=== PATIENT | female | born 1965 | race Caucasian/White ===

== ENCOUNTER → 2021-03-28 10:14 | Outpatient (CLI) | payer OTHER, SELFPAY ==
[2021-03-28 11:50] LABS: COVID19 -Nasal RAPID Negative (Negative)
== END ==
PROVIDERS: PCP Physician Assistant; Visit Provider Physician Assistant
DX: Z20.822 Contact with and (suspected) exposure to COVID-19 (principal); R05.9 Cough, unspecified; R51.9 Headache, unspecified
CPT/HCPCS: 87635

== ENCOUNTER 2021-10-18 19:44 | Emergency (ER) | payer SELFPAY ==
[2021-10-18 19:51] VITALS: BP 134/73; PULSE 85; RESP 26; TEMP 37.6; O2SAT 98; BMI 29.5
--- NOTE | 2021-10-18 19:54 | DI.RAD.S_ITS ---
PROCEDURE: XR CHEST 2V INDICATIONS: shortness of breath TECHNIQUE: 2 views of the chest were acquired. COMPARISON: None. FINDINGS: Surgical changes and devices: None. Lungs and pleura: There is pulmonary edema. No focal consolidation. No pleural effusions or pneumothorax. Mediastinum: Mediastinal contours are normal. Heart size is normal. Bones and chest wall: No suspicious bony abnormalities. Soft tissues appear unremarkable. IMPRESSION: 1. Pulmonary edema which may be due to cardiogenic or noncardiogenic etiologies, such as atypical pneumonia. Dictated by: Lloyd Titus M.D. on 10/18/2021 at 21:04 Approved by: Lloyd Titus M.D. on 10/18/2021 at 21:05
[2021-10-18 20:22] LABS: COVID19 -Nasal RAPID POSITIVE (Negative)
[2021-10-18 20:32] LABS: Add Manual Diff / Slide Review NO; Basophils Absolute Auto 0 /uL (0-100); Basophils Percent Auto 0.7 % (0-2); Eosinophils Absolute Auto 0 /uL (0-450); Hematocrit 51.2 % (36-46); Hemoglobin 17.4 g/dL (12.0-16.0); Lymphocytes Absolute Auto 1100 /uL (1100-4500); Lymphocytes Percent Auto 25.4 % (25-40); Mean Corpuscular Hemoglobin 29.7 PG (26-34); Mean Corpuscular Volume 87.2 fL (80-100); Monocytes Absolute Auto 500 /uL (0-900); Monocytes Percent Auto 10.8 % (3-14); Neutrophils Absolute Auto 2800 /uL (1500-7000); Neutrophils Percent Auto 63.1 % (50-75); Platelet Count 152 X10^3/uL (150-400); Red Blood Cell Count 5.87 X10^6/uL (4.0-5.2); Red Cell Distribution Width 13.8 % (11.6-14.8); White Blood Cell Count 4.4 X10^3/uL (4.5-11.0)
[2021-10-18 20:40] LABS: Lactate (Lactic Acid) 1.8 mmol/L (0.7-2.1)
[2021-10-18 20:41] LABS: Alanine Aminotransferase 33 IU/L (<35); Albumin 4.4 g/dL (3.5-5.0); Albumin Globulin Ratio 1.4 (1.0-2.8); Alkaline Phosphatase 94 U/L (38-126); Aspartate Aminotransferase 46 IU/L (14-36); BUN Creatinine Ratio 15.5 (6-22); Bilirubin Total 0.6 mg/dL (0.2-1.3); Blood Urea Nitrogen 11 mg/dL (7-17); Calcium 8.4 mg/dL (8.4-10.2); Carbon Dioxide 29 mmol/L (22-32); Chloride 98 mmol/L (98-107); Estimated Glomerular Filt Rate > 60 mL/min (>60); Globulin 3.1 g/dL (1.7-4.1); Glucose 121 mg/dL (70-100); HEMOLYSIS < 15 (0-50); Potassium 3.4 mmol/L (3.4-5.1); Sodium 133 mmol/L (137-145); Total Protein 7.5 g/dL (6.3-8.2)
--- NOTE | 2021-10-18 20:47 | PC.NURSE ---
Pt states she was feeling faint. Sats checked and she is 96% on RA with a HR of 76. Pt brought to a couch in the waiting room where she can lay down since we have no open beds in the ER. Pt reminding to take slow deep breaths
--- NOTE | 2021-10-18 21:30 | PC.NURSE ---
pt sent from clinic no change in triage assessment pt aao x 3 resp even and unlabored, fariha
[2021-10-18 21:43] LABS: Creatine Kinase 91 U/L (30-135)
[2021-10-18 21:55] LABS: NT-proBNP (BNP-Adult 18+) 47 pg/mL (<125); Troponin I < 0.012 ng/mL (0.01-0.034)
--- NOTE | 2021-10-19 00:31 | ED.FEVER ---
HPI - Fever General Chief Complaint: Fever Stated Complaint: fever, not eating or drinking, sent by clinic Time Seen by Provider: 10/18/21 21:31 Source: patient Mode of arrival: Wheelchair Limitations: no limitations History of Present Illness HPI Narrative: This is a 56-year-old female who comes in with complaint of fevers for the past 7 days. Patient has had nausea with post-tussive emesis. She states she has not been taking much fluids. She has had no chest pain but has felt short of breath she has had which she describes as a cough but nonproductive. No syncope. No diarrhea. No issues with urination. Patient has not had any swelling of extremities. She is a former smoker quit in the last 1-2 months. She denies any major medical issues. She does drink alcohol, occasional THC. She denies any daily medications. Related Data Previous Rx's Medication Instructions Recorded ondansetron 4 mg disintegrating 4 mg PO Q6H PRN #10 tab 10/19/21 tablet Allergies Allergy/AdvReac Type Severity Reaction Status Date / Time iodine Allergy Unknown UNKNOWN Verified 10/18/21 19:54 Review of Systems Review of Systems ROS Unobtainable: All systems reviewed & are unremarkable except as noted in HPI and below Patient History Social History Smoking Status: Former smoker Smoking Status: Former smoker alcohol intake frequency: 0-2 drinks per day Substance Use Type: marijuana Exam Narrative Exam Narrative: GENERAL: Alert and oriented x three, female in mild distress. HEENT: Head normocephalic, atraumatic, EOMI, pupils reactive, face symmetric, moist mucous membranes NECK: Supple, full range of motion CARDIOVASCULAR: Regular rate and rhythm without murmurs, rubs or gallops. No swelling bilateral lower extremities. no JVD. RESPIRATORY: Breath sounds equal bilaterally, no wheezes rales or rhonchi. No accessory muscle use. Mild tachypnea. Speaks in full sentences. ABDOMEN: Soft, nontender. Normoactive bowel sounds all 4 quadrants. No guarding or rebound, rigidity, no mass : No CVA tenderness EXTREMITIES: Normal range of motion, no clubbing or edema. Neurovascularly intact NEUROLOGICAL: Cranial nerves II through XII grossly intact. Moving all extremities SKIN: Warm, dry, no petechiae, no rashes or lesions. Initial Vital Signs Initial Vital Signs: Vital Signs Temperature 99.7 F H 10/18/21 19:51 Pulse Rate 85 10/18/21 19:51 Respiratory Rate 26 H 10/18/21 19:51 Blood Pressure 134/73 10/18/21 19:51 Pulse Oximetry 98 10/18/21 19:51 Course Orders Ordered: Discontinued Medications Ondansetron HCl (Ondansetron 4 Mg/2 Ml Inj) 4 mg IV NOW ONE Stop: 10/19/21 00:47 Last Admin: 10/19/21 01:07 Dose: Not Given Documented by: AMAYA Ondansetron HCl (Ondansetron 4 Mg Odt) 4 mg SL NOW ONE Stop: 10/19/21 01:03 Last Admin: 10/19/21 01:07 Dose: 4 mg Documented by: AMAYA Vital Signs Vital signs: Vital Signs - 8 hr 10/19/21 01:08 Pulse Rate 78 Respiratory Rate 16 Blood Pressure 126/78 Pulse Oximetry 97 MDM - Fever Lab Data Result diagrams: 10/18/21 20:15 10/18/21 20:15 Labs: Lab Results 10/18/21 10/18/21 10/18/21 Range/Units 19:55 20:15 20:15 WBC 4.4 L (4.5-11.0) X10^3/uL RBC 5.87 H (4.0-5.2) X10^6/uL Hgb 17.4 H (12.0-16.0) g/dL Hct 51.2 H (36-46) % MCV 87.2 (80-100) fL MCH 29.7 (26-34) PG MCHC 34.0 (30-36) % RDW 13.8 (11.6-14.8) % Plt Count 152 (150-400) X10^3/uL Neut % (Auto) 63.1 (50-75) % Lymph % (Auto) 25.4 (25-40) % [place] % (Auto) 10.8 (3-14) % Eos % (Auto) 0.0 L (2-4) % Baso % (Auto) 0.7 (0-2) % Neut # (Auto) 2800 (6130-7588) /uL Lymph # (Auto) 1100 (9288-7616) /uL [place] # (Auto) 500 (0-900) /uL Eos # (Auto) 0 (0-450) /uL Baso # (Auto) 0 (0-100) /uL Sodium 133 L (137-145) mmol/L Potassium 3.4 (3.4-5.1) mmol/L Chloride 98 (98-107) mmol/L Carbon Dioxide 29 (22-32) mmol/L BUN 11 (7-17) mg/dL Creatinine 0.71 (0.52-1.04) mg/dL Estimated GFR > 60 (>60) mL/min BUN/Creatinine Ratio 15.5 (6-22) Glucose 121 H (70-100) mg/dL Lactate (0.7-2.1) mmol/L Calcium 8.4 (8.4-10.2) mg/dL Total Bilirubin 0.6 (0.2-1.3) mg/dL AST 46 H (14-36) IU/L ALT 33 (<35) IU/L Alkaline Phosphatase 94 (38-126) U/L Total Creatine Kinase (30-135) U/L CK-MB (CK-2) CK-MB (CK-2) Rel Index Troponin I (0.01-0.034) ng/mL NT-Pro-B Natriuret Pep (<125) pg/mL Total Protein 7.5 (6.3-8.2) g/dL Albumin 4.4 (3.5-5.0) g/dL Globulin 3.1 (1.7-4.1) g/dL Albumin/Globulin Ratio 1.4 (1.0-2.8) SARS-CoV-2 (PCR) Positive H (Negative) 10/18/21 10/18/21 Range/Units 20:15 20:15 WBC (4.5-11.0) X10^3/uL RBC (4.0-5.2) X10^6/uL Hgb (12.0-16.0) g/dL Hct (36-46) % MCV (80-100) fL MCH (26-34) PG MCHC (30-36) % RDW (11.6-14.8) % Plt Count (150-400) X10^3/uL Neut % (Auto) (50-75) % Lymph % (Auto) (25-40) % [place] % (Auto) (3-14) % Eos % (Auto) (2-4) % Baso % (Auto) (0-2) % Neut # (Auto) (7977-2691) /uL Lymph # (Auto) (1430-8342) /uL [place] # (Auto) (0-900) /uL Eos # (Auto) (0-450) /uL Baso # (Auto) (0-100) /uL Sodium (137-145) mmol/L Potassium (3.4-5.1) mmol/L Chloride (98-107) mmol/L Carbon Dioxide (22-32) mmol/L BUN (7-17) mg/dL Creatinine (0.52-1.04) mg/dL Estimated GFR (>60) mL/min BUN/Creatinine Ratio (6-22) Glucose (70-100) mg/dL Lactate 1.8 (0.7-2.1) mmol/L Calcium (8.4-10.2) mg/dL Total Bilirubin (0.2-1.3) mg/dL AST (14-36) IU/L ALT (<35) IU/L Alkaline Phosphatase (38-126) U/L Total Creatine Kinase 91 (30-135) U/L CK-MB (CK-2) TNP CK-MB (CK-2) Rel Index TNP Troponin I < 0.012 (0.01-0.034) ng/mL NT-Pro-B Natriuret Pep 47 (<125) pg/mL Total Protein (6.3-8.2) g/dL Albumin (3.5-5.0) g/dL Globulin (1.7-4.1) g/dL Albumin/Globulin Ratio (1.0-2.8) SARS-CoV-2 (PCR) (Negative) Imaging Data Chest x-ray: Radiologist's Impression: Launch?[address] [address] XRay Report Signed Patient: Ashley Hatch MR#: [id number] : 1965 Acct:[id number] Age/Sex: 56 / F Date of Service: 10/18/21 Loc: ED Accession Number: [id number] ?? Procedure: XR chest 2V Ordering Provider: Rona Faith D.O. PROCEDURE:? XR CHEST 2V ? INDICATIONS:? shortness of breath ? TECHNIQUE:? 2 views of the chest were acquired.? ? COMPARISON:? None. ? FINDINGS:? ? Surgical changes and devices:? None.? ? Lungs and pleura:? There is pulmonary edema.? No focal consolidation.? No pleural effusions or pneumothorax.? ? Mediastinum:? Mediastinal contours are normal.? Heart size is normal.? ? Bones and chest wall:? No suspicious bony abnormalities.? Soft tissues appear unremarkable.? ? IMPRESSION:? ? 1. Pulmonary edema which may be due to cardiogenic or noncardiogenic etiologies, such as atypical pneumonia.? ? ? Dictated by: Lloyd Titus M.D. on 10/18/2021 at 21:04 ? ? Approved by: Lloyd Titus M.D. on 10/18/2021 at 21:05?? MDM Narrative Medical decision making narrative: This is a 56 year old female with fever and COVID like symptoms who is COVID positive here in the department. Chest x-ray shows appears to be pneumonia consistent with infection. Labs reflect a mild hyponatremia, glucose of 121, AST of 46. Patient's vitals are appropriate for discharge home. She was given a dose of Zofran as she has had quite a bit of nausea and occasional vomiting. As well as prescription. Patient was referred to the department for evaluation and also pavlox but patient is outside the 5 day window. Patients vitals and exam findings are appropriate for discharge home. Return precautions discussed, patient has a pulse ox available at home. We did discuss Pavlox and patient is outside the window for treatment. Discharge Plan Departure Patient Disposition: Home Clinical Impression: 2019 novel coronavirus-infected pneumonia (NCIP) Instructions: DI for COVID-19 (Suspected or Confirmed ) Activity Restrictions/Additional Instructions: *You have been diagnosed with coronavirus pneumonia If you wish you may obtain a pulse oximeter for use at home to monitor. Please return to the ER if your pulse oximeter shows an O2 saturation less than 90%. You are outside of the timeframe for Paxlovid. You may take Tylenol up to a 1000 mg every 6 hours as needed for fever, and or ibuprofen up to 600 mg every 6 hours as needed. You may take Zofran 1 tablet every 6 hours as needed for nausea or vomiting. Prescription sent to [facility] in [place]. *What to do: * per recommendations from the CDC and the [facility] Department of Health * stay home except to get medical care. Restrict activities outside your home, except for getting medical care. Do not go to work, school, or public areas. Avoid using public transportation, ride sharing, or taxis. * separate yourself from other people in your home. * call ahead before visiting your doctor * Wear a face mask * Cover your coughs and sneezes * Clean your hands often * Avoid sharing household items * Clean all high-touch services every day * Monitor your symptoms and seek prompt medical attention if your illness is worsening, particularly with difficulty in breathing. Please return for new or worsening chest pain, shortness of breath, passing out, new swelling in her extremities, persistent vomiting or other new or concerning symptoms. Prescriptions: New ondansetron 4 mg tablet,disintegrating 4 mg PO Q6H PRN (Reason: nausea and vomiting) Qty: 10 0RF Referrals: Karma Quijano PA-C [Primary Care Provider] -
[2021-10-19] MEDS: ONDANSETRON 4 MG ODT SL (01:07)
[2021-10-19 01:08] VITALS: BP 126/78; PULSE 78; RESP 16; O2SAT 97
== END 2021-10-19 01:09 | disposition home or self-care (01) ==
PROVIDERS: Emergency Provider Emergency Medicine; PCP Physician Assistant
DX: U07.1 COVID-19 (principal); J12.82 Pneumonia due to coronavirus disease 2019
CPT/HCPCS: 36415; 71046; 80053; 82550; 83605; 83880; 84484; 85025; 87635; 99283; 99284; C9803

== ENCOUNTER 2023-02-22 11:49 | Emergency (ER) | payer OTHER, SELFPAY ==
[2023-02-22 11:50] VITALS: BP 141/76; PULSE 95; RESP 14; TEMP 36.6; O2SAT 96; BMI 29.5
--- NOTE | 2023-02-22 12:09 | ED_ITS ---
HPI - Skin/Abscess/Foreign Bdy General Chief complaint: Skin/Abscess/Foreign Body Stated complaint: sent by [facility] swollen face LT side Time Seen by Provider: 02/22/23 11:50 Source: patient Mode of arrival: Ambulatory Limitations: no limitations History of Present Illness HPI narrative: 58-year-old female who is sent from the walk-in clinic for evaluation of swelling to the left side of her face. It has been there for approximately the past week. She is not having any problems swallowing or breathing. No ear pa in. She thought maybe she had a dental abscess but she went to the dentist and was told that it was not a dental related issue. There has been no skin changes over the area. Is not taking any medications for the symptoms. Related Data Previous Rx's Medication Instructions Recorded amoxicillin 875 mg-potassium 1 tab PO BID 7 days #14 tabs 02/22/23 clavulanate 125 mg tablet Allergies Allergy/AdvReac Type Severity Reaction Status Date / Time iodine Allergy Unknown UNKNOWN Verified 02/22/23 11:56 Review of Systems Constitutional Constitutional: Reports system reviewed and no additional complaints, except as documented ENT Ears, Nose, Mouth, and Throat: Reports system reviewed and no additional complaints, except as documented Respiratory Respiratory: Reports system reviewed and no additional complaints, except as documented Integumentary/Breasts Skin/Breast: Reports system reviewed and no additional complaints, except as documented Neurologic Neurologic: Reports system reviewed and no additional complaints, except as documented Patient History Social History Smoking Status: Current every day smoker Smoking Status: Current every day smoker alcohol intake frequency: holidays/special occasions only Substance Use Type: marijuana Exam Initial Vital Signs Initial Vital Signs: Vital Signs Temperature 97.9 F 02/22/23 11:50 Pulse Rate 95 H 02/22/23 11:50 Respiratory Rate 14 02/22/23 11:50 Blood Pressure 141/76 H 02/22/23 11:50 Pulse Oximetry 96 02/22/23 11:50 Oxygen Delivery Method Room Air 02/22/23 11:50 Const General: cooperative, comfortable and No ill appearing HENMT Head: normal to inspection Ears: hearing grossly normal bilaterally, TM's normal bilaterally and EAC's normal Face and sinus: other (Swelling left parotid gland area) Mouth: oral mucosae normal HENMT Other: Upper dentures in place Neck Lymphatic: lymphadenopathy (Left anterior cervical region) Resp Effort & Inspection: normal respiratory effort Skin General: no rashes or lesions noted Neuro General: patient alert, patient awake, patient oriented x3 and moves all extr emities Extrem General: normal to inspection Course Orders Ordered: ED Orders 02/22/23 12:09 CT facial bones w con Stat 02/22/23 12:38 Complete Blood Count AUTO DIFF Stat 02/22/23 12:40 Basic Metabolic Panel Stat Vital Signs Vital signs: Vital Signs - 8 hr 02/22/23 11:50 02/22/23 14:45 Temperature 97.9 F Pulse Rate 95 H 76 Respiratory Rate 14 16 Blood Pressure 141/76 H 145/77 H Pulse Oximetry 96 97 Oxygen Delivery Method Room Air Room Air MDM - Skin/Abscess/Foreign Bdy Lab Data Attestation: I reviewed the patient's lab results. 02/22/23 12:38 02/22/23 12:40 Labs: Lab Results 02/22/23 02/22/23 Range/Units 12:38 12:40 WBC 9.2 (4.5-11.0) X10^3/uL RBC 5.10 (4.0-5.2) X10^6/uL Hgb 15.7 (12.0-16.0) g/dL Hct 46.0 (36-46) % MCV 90.2 (80-100) fL MCH 30.7 (26-34) PG MCHC 34.0 (30-36) % RDW 14.2 (11.6-14.8) % Plt Count 250 (150-400) X10^3/uL Neut % (Auto) 70.5 (50-75) % Lymph % (Auto) 20.7 L (25-40) % [place] % (Auto) 6.5 (3-14) % Eos % (Auto) 1.1 L (2-4) % Baso % (Auto) 1.2 (0-2) % Neut # (Auto) 6500 (0816-3899) /uL Lymph # (Auto) 1900 (2914-1866) /uL [place] # (Auto) 600 (0-900) /uL Eos # (Auto) 100 (0-450) /uL Baso # (Auto) 100 (0-100) /uL Sodium 138 (137-145) mmol/L Potassium 3.6 (3.4-5.1) mmol/L Chloride 106 (98-107) mmol/L Carbon Dioxide 23 (22-32) mmol/L BUN 8 (7-17) mg/dL Creatinine 0.57 (0.52-1.04) mg/dL Estimated GFR > 60 (>60) mL/min BUN/Creatinine Ratio 14.0 (6-22) Glucose 158 H (70-100) mg/dL Calcium 8.8 (8.4-10.2) mg/dL Imaging Data CT face: Radiologist's Impression: PROCEDURE:? CT FACIAL BONES W CON ? INDICATIONS:? L sided mandibular swelling eval for abscess ? TECHNIQUE:? After the administration of intravenous contrast, 2.5 mm axial sections acquired from the mid-neck to the frontal sinuses, with coronal and sagittal reformats.? For ra diation dose reduction, the following was used:? automated exposure control, adjustment of mA and/or kV according to patient size.? ? COMPARISON:? None. ? FINDINGS:? Image quality:? Excellent.? ? Soft tissues:? There is a heterogeneously enhancing mass within the left parotid gland measuring 3.2 x 2.8 cm. No enlarged lymph nodes.? No abscess. ? Vascular:? Visualized vascular structures appear patent throughout.? Bony vascular foramina and canals appear normal.? ? Bones:? Facial bones appear intact, without fractures, erosions, or destruction.? Visualized portions of the skull base and auditory canals also appear normal.? ? Sinuses:? Paranasal sinuses are aerated without fluid levels, mucosal thickening, or mucoceles.? Mastoid air cells are aerated.? ? IMPRESSION:? ? Heterogeneously enhancing mass within the left parotid gland.? Further evaluation with biopsy is recommended to exclude malignancy. MDM Narrative Medical decision making narrative: CT scan does show swelling of the left parotid gland. She is minimal discomfort no redness over the area and it did seem to swell rather quickly which I suspect is more consistent with a salivary duct stone however an infection is still possible. She was given a antibiotic however she was going to hold on filling this for now to see if her symptoms do not improve over the next day or so with other conservative treatments. She was informed that if this does not improve she will need a follow-up with ENT for a biopsy. She was given return precautions. She expressed understanding and agreement. Discharge Plan Departure Patient Disposition: Home Clinical Impression: Acute parotitis Instructions: Parotitis Activity Restrictions/Additional Instructions: I recommend that you hold on filling the prescription for antibiotics for now until you try the other medications at home to include eating things that make you salivate. If this is not improving that start taking the antibiotics. If both of these do not work then you will need follow-up with ENT and you can contact them with the number provided below for follow-up. Prescriptions: New amoxicillin-pot clavulanate 875-125 mg tablet 1 tab PO BID 7 Days Qty: 14 0RF Referrals: Sukhwinder Guerrero MD [Physician] - Miscellaneous,MD Jaden [Primary Care Provider] - Stand Alone Forms: Patient Portal/API
--- NOTE | 2023-02-22 12:09 | DI.CT.S_ITS ---
PROCEDURE: CT FACIAL BONES W CON INDICATIONS: L sided mandibular swelling eval for abscess TECHNIQUE: After the administration of intravenous contrast, 2.5 mm axial sections acquired from the mid-neck to the frontal sinuses, with coronal and sagittal reformats. For radiation dose reduction, the following was used: automated exposure control, adjustment of mA and/or kV according to patient size. COMPARISON: None. FINDINGS: Image quality: Excellent. Soft tissues: There is a heterogeneously enhancing mass within the left parotid gland measuring 3.2 x 2.8 cm. No enlarged lymph nodes. No abscess. Vascular: Visualized vascular structures appear patent throughout. Bony vascular foramina and canals appear normal. Bones: Facial bones appear intact, without fractures, erosions, or destruction. Visualized portions of the skull base and auditory canals also appear normal. Sinuses: Paranasal sinuses are aerated without fluid levels, mucosal thickening, or mucoceles. Mastoid air cells are aerated. IMPRESSION: Heterogeneously enhancing mass within the left parotid gland. Further evaluation with biopsy is recommended to exclude malignancy. Dictated by: Claire Bui M.D. on 02/22/2023 at 14:54 Approved by: Claire Bui M.D. on 02/22/2023 at 14:59
[2023-02-22 12:47] LABS: Add Manual Diff / Slide Review NO; Basophils Absolute Auto 100 /uL (0-100); Basophils Percent Auto 1.2 % (0-2); Eosinophils Absolute Auto 100 /uL (0-450); Eosinophils Percent Auto 1.1 % (2-4); Hemoglobin 15.7 g/dL (12.0-16.0); Lymphocytes Absolute Auto 1900 /uL (1100-4500); Lymphocytes Percent Auto 20.7 % (25-40); Mean Corpuscular Hemoglobin 30.7 PG (26-34); Mean Corpuscular Volume 90.2 fL (80-100); Monocytes Absolute Auto 600 /uL (0-900); Monocytes Percent Auto 6.5 % (3-14); Neutrophils Absolute Auto 6500 /uL (1500-7000); Neutrophils Percent Auto 70.5 % (50-75); Platelet Count 250 X10^3/uL (150-400); Red Cell Distribution Width 14.2 % (11.6-14.8); White Blood Cell Count 9.2 X10^3/uL (4.5-11.0)
[2023-02-22 13:03] LABS: Blood Urea Nitrogen 8 mg/dL (7-17); Calcium 8.8 mg/dL (8.4-10.2); Carbon Dioxide 23 mmol/L (22-32); Chloride 106 mmol/L (98-107); Estimated Glomerular Filt Rate > 60 mL/min (>60); Glucose 158 mg/dL (70-100); HEMOLYSIS < 15 (0-50); Potassium 3.6 mmol/L (3.4-5.1); Sodium 138 mmol/L (137-145)
[2023-02-22 14:45] VITALS: BP 145/77; PULSE 76; RESP 16; O2SAT 97
== END 2023-02-22 15:23 | disposition home or self-care (01) ==
PROVIDERS: Emergency Provider Emergency Medicine
DX: K11.21 Acute sialoadenitis (principal)
CPT/HCPCS: 36415; 70487; 80048; 85025; 99284; Q9967